=== PATIENT | male | born 2000 | race African-American/Black ===

== ENCOUNTER 2025-02-06 01:01 | Emergency (ER) | payer OTHER ==
[~2025-02-06] VITALS: Ht 175.3 cm; Wt 113.6 kg
[2025-02-06 02:29] LABS: BASO # 0.0 10^3/uL (0.0-0.2); BASO % 0.1 % (0.0-1.0); EOS # 0.3 10^3/uL (0.0-0.5); EOS % 2.3 % (0.0-3.0); LYMPH # 3.1 10^3/uL (1.5-5.0); LYMPH % 28.5 % (24.0-44.0); MONO # 0.7 10^3/uL (0.0-0.8); MONO % 5.9 % (2.0-8.0); NEUTROPHILS # 6.9 10^3/uL (1.5-8.5); NEUTROPHILS % 63.0 % (36.0-66.0); PLATELET COUNT, AUTOMATED 167 10^3/uL (150-450)
[2025-02-06 02:39] LABS: INR 0.99
[2025-02-06 02:55] LABS: ALT/SGPT 19 U/L (7.0-40); AST/SGOT 19 U/L (<34); CALCIUM LEVEL 9.1 MG/DL (8.5-10.1); CARBON DIOXIDE LEVEL 26 MMOL/L (20-31); CHLORIDE LEVEL 106 MMOL/L (98-107); CK-MB VALUE MASS < 1.0 NG/ML (<3.6); CREATININE FOR GFR 0.81 MG/DL (0.70-1.30); GLOMERULAR FILTRATION RATE > 90.0 (>60); POTASSIUM SERUM 3.3 MMOL/L (3.5-5.1); SODIUM LEVEL 141 MMOL/L (136-145)
[2025-02-06 03:11] LABS: CPK CREATINE PHOSPHOKINASE 232 U/L (46-171)
[2025-02-06] MEDS ORDERED: ISOVUE-370 76% 100 ML VIAL As Ordered ONE (05:38)
[2025-02-06] MEDS ORDERED: HOLTER MONITOR XX (06:35)
[2025-02-06 07:15] VITALS: TEMP 97.4
[2025-02-06 07:15] LABS: CK-MB VALUE MASS 1.1 NG/ML (<3.6)
[2025-02-06 07:36] LABS: CPK CREATINE PHOSPHOKINASE 207 U/L (46-171); MB/CK RELATIVE INDEX 0.53 (< OR =4)
[2025-02-06] MEDS: POTASSIUM CHLORIDE 10MEQ SR TABLET PO ONE (07:55)
[2025-02-06 08:00] VITALS: BP 131/67; O2SAT 98
== END 2025-02-06 08:31 | disposition home or self-care (01) ==
LOC: M ED 01:01
DX: R55 Syncope and collapse (principal); R00.2 Palpitations; I44.0 Atrioventricular block, first degree; E11.9 Type 2 diabetes mellitus without complications
CPT/HCPCS: 36415; 71045; 71275; 80048; 80076; 82550; 82553; 83690; 84484; 85025; 85610; 93005; 93041; 94760; 99285; Q9967

== ENCOUNTER → 2025-02-12 | Outpatient (CLI) | payer OTHER ==
[~2025-02-12] MED LIST: HOLTER MONITOR XX
== END ==
LOC: M EKG 09:40
DX: R55 Syncope and collapse (principal)

== ENCOUNTER → 2025-04-16 | Outpatient (CLI) | payer OTHER | LOC: M CARPUL 11:42 | DX: R55 Syncope and collapse (principal) ==

== ENCOUNTER → 2025-04-17 | Outpatient (CLI) | payer OTHER | LOC: M CARPUL 13:00 | DX: R55 Syncope and collapse (principal) ==

== ENCOUNTER 2025-04-18 06:17 | Emergency (ER) | payer OTHER ==
[~2025-04-18] VITALS: Ht 175.3 cm; Wt 114.1 kg
[2025-04-18 07:46] LABS: BASO # 0.0 10^3/uL (0.0-0.2); BASO % 0.1 % (0.0-1.0); EOS # 0.2 10^3/uL (0.0-0.5); EOS % 1.7 % (0.0-3.0); LYMPH # 2.2 10^3/uL (1.5-5.0); LYMPH % 24.1 % (24.0-44.0); MONO # 0.6 10^3/uL (0.0-0.8); MONO % 6.9 % (2.0-8.0); NEUTROPHILS # 6.0 10^3/uL (1.5-8.5); NEUTROPHILS % 67.0 % (36.0-66.0); PLATELET COUNT, AUTOMATED 170 10^3/uL (150-450)
[2025-04-18 08:10] LABS: D-DIMER QUANT 0.27 ug/mL (<0.5); INR 1.01
[2025-04-18 08:19] LABS: CALCIUM LEVEL 9.1 MG/DL (8.5-10.1); CARBON DIOXIDE LEVEL 26 MMOL/L (20-31); CHLORIDE LEVEL 106 MMOL/L (98-107); CK-MB VALUE MASS < 1.0 NG/ML (<3.6); CREATININE FOR GFR 0.90 MG/DL (0.70-1.30); GLOMERULAR FILTRATION RATE > 90.0 (>60); POTASSIUM SERUM 4.1 MMOL/L (3.5-5.1); SODIUM LEVEL 140 MMOL/L (136-145)
[2025-04-18 08:23] LABS: CPK CREATINE PHOSPHOKINASE 307 U/L (46-171)
[2025-04-18 09:01] LABS: CK-MB VALUE MASS < 1.0 NG/ML (<3.6)
[2025-04-18 09:02] LABS: CPK CREATINE PHOSPHOKINASE 290 U/L (46-171)
[2025-04-18 09:15] VITALS: BP 115/62; TEMP 97.6; O2SAT 99
== END 2025-04-18 09:22 | disposition home or self-care (01) ==
LOC: M ED 06:17
DX: R07.89 Other chest pain (principal); I49.49 Other premature depolarization